=== PATIENT | female | born 1960 | race Caucasian/White ===

== ENCOUNTER → 2016-08-12 | Outpatient (CLI) | payer MEDICAID ==
[~2016-08-12] MED LIST: ALDACTONE25 MG PO; CHANTIX1 MG PO; CPAP INH; DEMADEX10 MG PO; GLUCOPHAGE1000 MG PO; LEVOTHROID(SY175 MCG PO; MOBIC15 MG PO; NEURONTIN300 MG PO; NORCO 5-325 TA1 EACH PO; OMEPRAZOLE40 MG PO; STOOL SOFTENER100 MG PO; WAL-DRYL25 MG PO; ZOCOR40 MG PO
== END | disposition disaster alternative care site (69) ==
LOC: GRAD 10:31
DX: M54.5 Low back pain (principal); R26.2 Difficulty in walking, not elsewhere classified; M48.06 Spinal stenosis, lumbar region